=== PATIENT | male | born 1960 | race Caucasian/White ===

== ENCOUNTER → 2019-03-22 | Outpatient (REF) | payer OTHER ==
[~2019-03-22] MED LIST: ALLO100T PO; CEPH500C PO; LOSA50TA5 PO; VITATAB54 PO; ZOLO50TA PO
[2019-03-22 15:44] LABS: BASO # 0.1 10^3/uL (0.0-0.2); BASO % 1.3 % (0.0-1.0); EOS # 0.1 10^3/uL (0.0-0.5); EOS % 2.2 % (0.0-3.0); HEMATOCRIT 43.8 % (42.0-52.0); HEMOGLOBIN 15.2 g/dl (13.5-17.5); LYMPH # 1.4 10^3/uL (1.5-5.0); LYMPH % 30.6 % (24.0-44.0); MEAN CORPUSCULAR HGB CONC 34.7 g/dl (32.0-36.5); MEAN CORPUSCULAR VOLUME 100.9 fl (80.0-96.0); MONO # 0.6 10^3/uL (0.0-0.8); MONO % 12.1 % (0.0-5.0); NEUTROPHILS # 2.5 10^3/uL (1.5-8.5); NEUTROPHILS % 53.6 % (36.0-66.0); PLATELET COUNT, AUTOMATED 309 10^3/uL (150-450); RED BLOOD COUNT 4.34 10^6/uL (4.30-6.10); WHITE BLOOD COUNT 4.6 10^3/uL (4.0-10.0)
[2019-03-22 16:07] LABS: ALT/SGPT 57 U/L (12-78); BILIRUBIN,TOTAL 0.7 MG/DL (0.2-1.0); BLOOD UREA NITROGEN 11 MG/DL (7-18); C REACTIVE PROTEIN QUANTITATIV 1.53 MG/DL (0.00-0.30); CALCIUM LEVEL 9.1 MG/DL (8.5-10.1); CARBON DIOXIDE LEVEL 25 MEQ/L (21-32); CHLORIDE LEVEL 106 MEQ/L (98-107); CREATININE FOR GFR 0.92 MG/DL (0.70-1.30); GLOMERULAR FILTRATION RATE > 60.0 (>56); GLUCOSE, FASTING 62 MG/DL (70-100); POTASSIUM SERUM 4.3 MEQ/L (3.5-5.1); SODIUM LEVEL 139 MEQ/L (136-145); TOTAL PROTEIN 7.3 GM/DL (6.4-8.2)
[2019-03-22 16:13] LABS: ERYTHROCYTE SEDIMENTATION RATE 32 mm/hr (0-20)
== END ==
LOC: M LABDRAW1 12:29
PROVIDERS: ATTEND Orthopaedic Surgery
DX: S82.61XA Displaced fracture of lateral malleolus of right fibula, initial encounter for closed fracture (principal)

== ENCOUNTER 2019-03-26 12:47 | Day surgery (SDC) | payer OTHER ==
[~2019-03-26] VITALS: Ht 177.8 cm; Wt 115.6 kg
[~2019-03-26 12:47] MED LIST changes: +LIDOCAINE 1% MDV 20ML VIAL SQ PRN; +LR 1,000 ML IV ONE
[2019-03-26] MEDS ORDERED: EPINEPHrine INJ 1 MG/ML 1ML AMP ONE (12:48)
[2019-03-26] MEDS ORDERED: ROPIvacaine 0.5% 30 ML INJECTION (J2795 PER 1MG) ONE (12:48)
[2019-03-26] MEDS ORDERED: ceFAZolin SOD 2 GM in IV 1 EA IV ONE (14:45)
--- NOTE | 2019-03-26 15:10 | ECGEPIP ---
[facility] Test Date: 2019-03-26 Pat Name: KENIA HIGUERA Department: Room: - Gender: Male Marketing Program Coordinator: BALJIT : 1960 Requested By: ANNABEL PFEIFFER Order Number: [id number] Reading MD: Tavo Franklin Measurements Intervals [place] Rate: 74 P: 30 DC: 180 QRS: -14 QRSD: 89 T: -10 QT: 373 QTc: 416 Interpretive Statements SINUS RHYTHM Cannot rule out INFERIOR MYOCARDIAL INFARCTION, PROBABLY OLD. Poor R wave progression. Borderline low recorded voltages. No prior ECG available for comparison at the time of interpretation. Electronically Signed on 03-26-2019 15:10:00 EDT by Tavo Franklin
[2019-03-26] MEDS ORDERED: MIDAZOLAM INJ 2 MG/2 ML VIAL (J2250) As Ordered ONE ×2 (16:24→16:31)
[2019-03-26] MEDS ORDERED: fentaNYL 100 MCG/2 ML INJECTION (J3010) As Ordered ONE (16:24)
[2019-03-26] MEDS ORDERED: PROPOFOL 200 MG/20 ML VIAL As Ordered ONE (16:28)
[2019-03-26] MEDS ORDERED: dexameTHASONE 4 MG/ML 1ML VIAL (J1100) As Ordered ONE (16:28)
[2019-03-26] MEDS ORDERED: ROCURONIUM BROMIDE 50 MG/5 ML VIAL As Ordered ONE ×2 (16:28→17:45)
[2019-03-26] MEDS ORDERED: ONDANSETRON 4MG/2ML VIAL (J2405) As Ordered ONE (16:28)
[2019-03-26] MEDS ORDERED: LIDOCAINE 2% INJ 100 MG/5 ML SDV (FOR ANES.) As Ordered ONE (16:28)
[2019-03-26] MEDS ORDERED: SUGAMMADEX SODIUM 500 MG/5 ML VIAL (BRIDION) As Ordered ONE (16:29)
[2019-03-26] MEDS ORDERED: KETAMINE HCL 200 MG/20 ML VIAL As Ordered ONE (16:29)
[2019-03-26] MEDS ORDERED: fentaNYL 250 MCG/5 ML INJECTION (J3010) As Ordered ONE ×2 (16:29→18:49)
[2019-03-26] MEDS: MIDAZOLAM INJ 2 MG/2 ML VIAL (J2250) IV SCH ×2 (16:40→16:43)
[2019-03-26] MEDS: fentaNYL 100 MCG/2 ML INJECTION (J3010) IV SCH ×2 (16:40→16:43)
[2019-03-26] MEDS ORDERED: fentaNYL 100 MCG/2 ML INJECTION (J3010) IV PRN (19:15)
[2019-03-26] MEDS ORDERED: LR 1,000 ML IV SCH ×2 (19:15→20:15)
[2019-03-26] MEDS ORDERED: ONDANSETRON 4MG/2ML VIAL (J2405) IV PRN (19:15)
[2019-03-26] MEDS ORDERED: PERCOCET 5MG/325MG TAB PO PRN (19:15)
[2019-03-26] MEDS ORDERED: oxyCODONE 5MG TAB As Ordered ONE (19:58)
--- NOTE | 2019-03-26 20:11 | RO ---
DATE OF PROCEDURE: 03/26/2019 PREPROCEDURE DIAGNOSIS: Right SER 4 ankle fracture. POSTPROCEDURE DIAGNOSIS: Right SER 4 ankle fracture. PROCEDURE: Open reduction internal fixation right ankle. SURGEON: Vicky Marcial MD SLATE SPLITTER: None. ANESTHESIA: General endotracheal, popliteal nerve block. ESTIMATED BLOOD LOSS: 50 mL. COMPLICATIONS: None. CONDITION: Stable to recovery. INDICATIONS: Junior Andujar is a 59-year-old male who sustained a right ankle fracture, status post a mechanical fall. The risks and benefits of surgery were discussed with the patient in detail and include but are not limited to infection, damage to nerves and blood vessels, continued pain and stiffness, need for additional procedures. Informed consent was obtained in the office. DESCRIPTION OF PROCEDURE: The patient was met in the preoperative holding area where his right lower extremity was marked as the correct operative side. He then underwent a block by the anesthesia team. He was then taken to the operating room and placed in the supine position on the operating room table. Bony prominences were well padded. A well-padded tourniquet was placed on the upper thigh. Chlorhexidine scrub was performed of the right lower extremity. Patient underwent general anesthesia without difficulty. He was given antibiotics within 60 minutes prior to incision. Right lower extremity was prepped and draped in the normal sterile fashion. An official time out was held where the correct patient, operative side and operative procedure were verified. The right leg was exsanguinated with an Esmarch and tourniquet was inflated to 250 mmHg. Incision was made over the lateral aspect of the fibula. Blunt dissection was performed to the level of the fibular fracture. The patient was approximately 2 weeks out from injury, and there was a fair amount of hematoma that was debrided at the fracture site. Following this, there was copious irrigation that was performed of the fracture site as well. The fracture was then reduced using pointed reduction clamp. It was pinned in place using a 0.062 K-wire. Following this, x-rays were performed, which showed satisfactory reduction in AP mortise and lateral views. Next, a 3.5 mm lag screw was placed across the fracture site. This had excellent compression. I then chose a six-hole one-third tubular plate. It was secured proximally using 3.5 mm screws and distally using 4.0 cancellous screws. There was satisfactory bite on all screws. Again, x-rays were performed in AP mortise and lateral views. Reduction and hardware placement were found to be satisfactory. An external rotation stress test was performed, as was a Cotton exam, and these were found to be negative. At this point, the wound was irrigated copiously. Deep tissues were closed using #2-0 Vicryl. Subcutaneous tissues were closed using a combo of #2-0 and #3-0 Vicryl. Skin was closed using a #3-0 running nylon. The patient was placed into a well-padded splint. He was extubated and transferred to the recovery room in stable condition. PLAN: The patient will be non-weightbearing to the right lower extremity for 6 weeks. He will be on aspirin for deep vein thrombosis (DVT) prophylaxis. He will followup in 1-2 weeks for wound check and a cast change with potential suture removal. FRANCESCO
[2019-03-26] MEDS ORDERED: oxyCODONE 5MG TAB PO PRN ×2 (20:15)
[2019-03-26 21:00] VITALS: BP 146/80
--- NOTE | 2019-03-27 07:58 | REP ---
Right ankle: Six views. History: ORIF right ankle. Intraoperative imaging. 54 seconds of fluoroscopy time is reported. Findings: A sequence of six last image hold fluoroscopically obtained spot radiographs document open reduction internal fixation procedure. Electronically Signed by Jony Soto MD 03/27/2019 07:50 A
== END 2019-03-26 21:05 | disposition home or self-care (01) ==
LOC: M SDC 12:47
PROVIDERS: ATTEND Orthopaedic Surgery
DX: S82.61XA Displaced fracture of lateral malleolus of right fibula, initial encounter for closed fracture (principal); W19.XXXA Unspecified fall, initial encounter; I10 Essential (primary) hypertension; M10.9 Gout, unspecified; M12.9 Arthropathy, unspecified; L03.818 Cellulitis of other sites; R06.83 Snoring; F43.10 Post-traumatic stress disorder, unspecified; Z68.36 Body mass index [BMI] 36.0-36.9, adult; Z79.899 Other long term (current) drug therapy; Y93.9 Activity, unspecified; Y92.9 Unspecified place or not applicable; Y99.9 Unspecified external cause status
CPT/HCPCS: 27814; 64450; 76000; 93005; C1713; J0690; J1100; J2250; J2405; J2795; J3010

== ENCOUNTER 2019-05-04 08:08 | Day surgery (SDC) | payer OTHER ==
[~2019-05-04] VITALS: Ht 177.8 cm; Wt 117.9 kg
[~2019-05-04 08:08] MED LIST changes: +CETI10CH PO; +D3 H10002 PO; -LIDOCAINE 1% MDV 20ML VIAL SQ PRN; -LR 1,000 ML IV ONE; +NS 1,000 ML IV ONE; +PROPOFOL 200 MG/20 ML VIAL As Ordered ONE
[2019-05-04] MEDS ORDERED: PROPOFOL 200 MG/20 ML VIAL As Ordered ONE (09:35)
--- NOTE | 2019-05-04 09:39 | ROOR ---
Patient Name: Junior Andujar Procedure Date: 05/04/2019 9:14 AM Date of : 1960 Age: 59 Room: [facility] Gender: Male Note Status: Finalized Procedure: Colonoscopy Indications: High risk colon cancer surveillance: Personal history of colonic polyps, High risk colon cancer surveillance: Personal history of adenoma with high grade dysplasia, Last colonoscopy: December 2015 Providers: Tavo SHARMA MD Referring MD: MJ HARMON MD Requesting Provider: Medicines: Monitored Anesthesia Care Complications: No immediate complications. Procedure: Pre-Anesthesia Assessment: - The heart rate, respiratory rate, oxygen saturations, blood pressure, adequacy of pulmonary ventilation, and response to care were monitored throughout the procedure. The Colonoscope was introduced through the anus and advanced to the cecum, identified by appendiceal orifice and ileocecal valve. The colonoscopy was performed without difficulty. The patient tolerated the procedure well. The quality of the bowel preparation was good. Findings: The perianal and digital rectal examinations were normal. A 5 mm polyp was found in the ascending colon. The polyp was sessile. The polyp was removed with a cold snare. Resection and retrieval were complete. A tattoo was seen in the mid sigmoid colon. A post-polypectomy scar was found at the tattoo site. There was no evidence of residual polyp tissue. The exam was otherwise without abnormality on direct and retroflexion views. Impression: - One 5 mm polyp in the ascending colon, removed with a cold snare. Resected and retrieved. - A tattoo was seen in the mid sigmoid colon. A post-polypectomy scar was found at the tattoo site. There was no evidence of residual polyp tissue. - Small internal hemorrhoids. - The colon examination was otherwise normal on direct and retroflexion views. Recommendation: - Repeat colonoscopy in 5 years for surveillance. Tavo Sharma MD Tavo SHARMA MD 05/04/2019 9:39:12 AM Electronically signed by Tavo SHARMA MD Number of Addenda: 0 Note Initiated On: 05/04/2019 9:14 AM Estimated Blood Loss: Estimated blood loss: none.
[2019-05-04 10:04] VITALS: BP 143/82
== END 2019-05-04 10:06 | disposition home or self-care (01) ==
LOC: M OPP 08:08
PROVIDERS: ATTEND Internal Medicine Gastroenterology
DX: Z86.010 Personal history of colon polyps (principal); D12.2 Benign neoplasm of ascending colon; I10 Essential (primary) hypertension; M10.9 Gout, unspecified; F41.9 Anxiety disorder, unspecified; F43.10 Post-traumatic stress disorder, unspecified; F17.220 Nicotine dependence, chewing tobacco, uncomplicated; Z79.899 Other long term (current) drug therapy

== ENCOUNTER → 2022-05-17 | Outpatient (CLI) | payer OTHER ==
[~2022-05-17] MED LIST changes: -NS 1,000 ML IV ONE; -PROPOFOL 200 MG/20 ML VIAL As Ordered ONE
[2022-05-17 16:50] LABS: ALBUMIN 4.1 G/DL (3.2-5.2); ALKALINE PHOSPHATASE 58 U/L (46-116); ALT/SGPT 116 U/L (7.0-40); AST/SGOT 106 U/L (<34); BILIRUBIN,TOTAL 0.6 MG/DL (0.3-1.2); BLOOD UREA NITROGEN 10 MG/DL (9-23); CALCIUM LEVEL 8.7 MG/DL (8.3-10.6); CARBON DIOXIDE LEVEL 25 MMOL/L (20-31); CHLORIDE LEVEL 106 MMOL/L (98-107); GLOMERULAR FILTRATION RATE > 60.0 (>49); GLUCOSE, FASTING 72 MG/DL (74-106); SODIUM LEVEL 142 MMOL/L (136-145); TOTAL PROTEIN 7.6 G/DL (5.7-8.2)
== END ==
LOC: M WUC 11:52
PROVIDERS: ATTEND Internal Medicine
DX: R74.01 Elevation of levels of liver transaminase levels (principal)